=== PATIENT | female | born 2000 | race Hispanic/Latino ===

== ENCOUNTER 2025-05-26 18:33 | Emergency (ER) | payer BC ==
[~2025-05-26] VITALS: Ht 167.6 cm; Wt 61.7 kg
[2025-05-26 19:01] LABS: IMMATURE GRANULOCYTE ABSOLUTE 0.00 K/uL (0-1); NUCLEATED RED BLOOD CELLS 0.0 % (0.0-0.19); PLATELET COUNT (AUTO) 284 K/uL (130-400); RED BLOOD CELL COUNT(AUTO) 4.40 MIL/uL (4.00-5.50); RED CELL DISTRIBUTION WIDTH 12.3 % (11.0-15.5); WHITE BLOOD COUNT (AUTO) 6.4 K/uL (4.8-10.8)
[2025-05-26 19:09] LABS: CREATININE 0.7 mg/dL (0.5-1.0); GLOMERULAR FILTR. RATE CALC 125.0 mL/min (>90); GLUCOSE,RANDOM 83.0 mg/dL (70-105); SODIUM SERUM 140.0 mmol/L (136-145); UREA NITROGEN, BLOOD 12.0 mg/dL (7-18)
[2025-05-26] MEDS: DICYCLOMINE HCL 10 MG/5 ML ML PO ONE (19:16)
[2025-05-26] MEDS: LIDOCAINE HCL 2% VISCOUS 15 ML UDCUP PO ONE (19:16)
[2025-05-26] MEDS: MAG/ALUM/SIMETH 30 ML UDCUP PO ONE (19:16)
[2025-05-26 19:19] LABS: ASPARTATE AMINOTRANSFERASE 13.0 U/L (10-37); HCG,QUANTITATIVE 0.0 mIU/mL (0-5); TOTAL PROTEIN, SERUM 8.1 g/dL (6.0-8.3)
--- NOTE | 2025-05-26 20:07 | ERN ---
ED Note History of Present Illness Stated Complaint: ABD PAIN, CONSTIPATION Chief Complaint: Abdominal Pain Time Seen by MD: 18:37 Time Seen by Midlevel: 18:40 Dictation: 24-year-old female coming in complaining of epigastric pain denies having any fever, nausea, vomiting. Patient states she was seen at a urgent care couple of days ago where she had a CT scan they told everything was normal. Denies having any nausea, vomiting or diarrhea. Allergies: Coded Allergies: No Known Drug Allergies (Unverified Allergy, Unknown, 05/26/25) Past Medical History Past Medical History: No Pertinent History, Depression Surgical History: None : 0 Para: 0 Aborts: 0 Review of System Dictation Constitutional: Negative for fever,chills, and weight loss Eyes: Negative for injury, pain,redness, and discharge ENT: Negative for injury,pain or swelling Cardiovascular: Negative for chest pain, palpitations, and edema Respiratory: Negative for shortness of breath, cough, and wheezing, Abdomen/GI: Complaining of epigastric pain Back: Negative for injury and pain : Negative for injury, bleeding and discharge MS/Extremity: Negative for injury and deformity Skin: Negative for rash, and discoloration Neuro: Negative for headache, weakness, numbness, tingling, and seizure Psych: Negative for suicide ideation, homicidal ideation, and hallucinations Review of Systems: was completed Initial Vital Sign VS Vital Signs Date Time Temp Pulse Resp B/P (MAP) Pulse Ox O2 Delivery O2 Flow Rate FiO2 05/26/25 18:35 97.7 84 14 129/93 97 Room Air 0 05/26/25 18:52 21 Physical Exam Dictation General: awake, alert, NAD Head/Face: Normocephalic, atraumatic Eyes: PERRL, EOMI, vision at baseline ENT: oral cavity clear, TMs clear, no signs of infection Neck: Trachea midline, supple, no nuchal rigidity Cardiovascular: RRR, normal S1/S2, No MRGs, no JVD Respiratory: CTAB, no respiratory distress, No rales or wheezes Abdomen: Soft, non-tender, non-distended, normal bowel sounds, no guarding or rebound. Skin: Warm, dry, normal turgor, no rash MS/Extremity: Pulses equal, no cyanosis, neurovascular intact, FROM Neuro: COAx4, GCS 15, strength 5/5, CN 2-12 intact, normal cerebellar exam, normal gait, Psych: Normal behavior, mood, and affect normal Results (Laboratory/Radiology) Laboratory/Radiology Laboratory Tests Test 05/26/25 18:50 White Blood Count 6.4 K/uL (4.8-10.8) Red Blood Count 4.40 MIL/uL (4.00-5.50) Hemoglobin 12.8 g/dL (12.0-16.0) Hematocrit 37.0 % (36-48) Mean Corpuscular Volume 84.1 fL (79-99) Mean Corpuscular Hemoglobin 29.1 pg (27.0-33.0) Mean Corpuscular Hemoglobin Concent 34.6 g/dL (32.0-36.0) Red Cell Distribution Width 12.3 % (11.0-15.5) Platelet Count 284 K/uL (130-400) Mean Platelet Volume 9.9 fL (7.5-10.5) Immature Granulocyte % (Auto) 0.0 % (0-1) Neutrophils (%) (Auto) 56.9 % (40.0-77.0) Lymphocytes (%) (Auto) 35.7 % (21.0-51.0) Monocytes (%) (Auto) 6.8 % (3.0-13.0) Eosinophils (%) (Auto) 0.3 % (0.0-8.0) Basophils (%) (Auto) 0.3 % (0.0-5.0) Neutrophils # (Auto) 3.6 K/uL (1.8-7.7) Lymphocytes # (Auto) 2.3 K/uL (1.0-4.8) Monocytes # (Auto) 0.4 K/uL (0.1-1.0) Eosinophils # (Auto) 0.02 K/uL (0.00-0.70) Basophils # (Auto) 0.02 K/uL (0.00-0.20) Absolute Immature Granulocyte (auto 0.00 K/uL (0-1) Nucleated Red Blood Cells 0.0 % (0.0-0.19) Sodium Level 140 mmol/L (136-145) Potassium Level 3.2 mmol/L (3.5-5.1) L Chloride Level 102 mmol/L (101-111) Carbon Dioxide Level 23 mmol/L (21-32) Blood Urea Nitrogen 12 mg/dL (7-18) Creatinine 0.7 mg/dL (0.5-1.0) Glomerular Filtration Rate Calc 125 mL/min (>90) Random Glucose 83 mg/dL (70-105) Total Calcium 9.9 mg/dL (8.5-10.1) Total Bilirubin 0.6 mg/dL (0.2-1.0) Direct Bilirubin 0.2 mg/dL (0.0-0.3) Aspartate Amino Transf (AST/SGOT) 13 U/L (10-37) Alanine Aminotransferase (ALT/SGPT) 20 U/L (12-78) Alkaline Phosphatase 80 U/L (50-136) Total Protein 8.1 g/dL (6.0-8.3) Albumin 4.8 g/dL (3.5-5.0) Lipase 48 U/L (16-77) Human Chorionic Gonadotropin, Quant 0 mIU/mL (0-5) Labs Reviewed?: Yes ED Course ED Course Orders Procedure Category Date Status Time Cbc With Differential LAB 05/26/25 Complete 18:42 Basic Metabolic Panel LAB 05/26/25 Complete 18:42 Hepatic Function Panel LAB 05/26/25 Complete 18:42 Lipase LAB 05/26/25 Complete 18:42 Hcg,Quantitative LAB 05/26/25 Complete 18:42 Lidocaine Hcl 2% PHA 05/26/25 Complete Viscous (Lidocaine Hcl 19:00 Mag/Alum/Simeth 30ml PHA 05/26/25 Complete (Maalox Plus 30ml) 19:00 Dicyclomine Hcl PHA 05/26/25 Complete (Bentyl 10mg/5ml 19:00 Potassium Bicarb/Cit PHA 05/26/25 Complete Ac 25meq (K-Lyte Ta 19:50 Current Medications Medications (Trade) Dose Ordered Sig/Tobi Route PRN Reason Start Time Stop Time Status Last Admin Dose Admin Al Hydroxide/Mg Hydroxide (MAALox PLUS 30ML) 30 ml ONCE ONCE PO 05/26/25 19:00 05/26/25 19:01 DC 05/26/25 19:16 Dicyclomine HCl (Bentyl 10mg/5ml Syrup) 10 mg ONCE ONCE PO 05/26/25 19:00 05/26/25 19:01 DC 05/26/25 19:16 Lidocaine HCl (Lidocaine HCl 2% Viscous) 10 ml ONCE ONCE PO 05/26/25 19:00 05/26/25 19:01 DC 05/26/25 19:16 Potassium Bicarbonate (K-Lyte Tablet Eff 25 Meq Tablet.eff) 25 meq ONCE STAT PO 05/26/25 19:50 05/26/25 19:55 DC 05/26/25 20:03 Vital Signs Date Time Temp Pulse Resp B/P (MAP) Pulse Ox O2 Delivery O2 Flow Rate FiO2 05/26/25 18:52 97.7 84 14 129/63 97 Room Air* 0 21 05/26/25 18:35 97.7 84 14 129/93 97 Room Air 0 Medical Decision Making MDM MDM: 24-year-old female coming in complaining of epigastric pain denies having any fever, nausea, vomiting. Patient states she was seen at a urgent care couple of days ago where she had a CT scan they told everything was normal. Denies having any nausea, vomiting or diarrhea. All blood work is unremarkable. No transaminitis, T bili and lipase within normal range. Patient states feels better after medications. Discussed with the patient next step would be to follow up with the medicaid billing clerk to see if she needs further evaluation for other etiologies like H pylori, GERD, PUD. Patient educated on signs and symptoms when to return back to the ER. Verbalized understanding, answered all questions. Differential diagnosis: Pancreatitis, GERD, gastritis, PUD Rationale: Tests considered and ordered secondary to shared decision making include: Previous outside records reviewed: Old ER visits. Risk of complication and/or morbidity or mortality of patient management: None Medications-Per medication reconciliation Need for hospitalization: Patient does not meet criteria for hospitalization. Need for emergency major/minor surgery: No There are no social concerns with this patient. Prescription drug management Prescriptions will include symptomatic care Patient's prior external medical records from other ER visits were reviewed by me as indicated. Prior testing and results from previous visits were reviewed. Prior tests were taken into account with medical decision making and resource utilization, independent historian/historians were used to obtain complete medical history. I independently interpreted the test that were performed, results were reviewed by me and considered findings on radiology if ordered. Medical management and examination interpretation discussions were had by me with other qualified healthcare professionals as indicated for the patient's care. DX & DISP Disposition: Discharge Departure Impression: Primary Impression: Gastritis Condition: Stable Scripts Dicyclomine HCl (Bentyl) 20 Mg Tab 1 TAB PO BID for irritable bowel symptoms for 30 Days, #60 TAB 0 Refills Prov: CONCEPCION REYES NP 05/26/25 Additional Instructions: Yes you can take Tums for acid and your stomach along with the medications that I provided as needed. Follow up with PCP and with medicaid billing clerk. Referrals: SELF,REFERRAL (PCP) SELIN PALMA MD Time of Disposition: 20:10 I have reviewed the case, and I agree with, Diagnosis and Plan CONCEPCION REYES NP May 26, 2025 20:07
[2025-05-26] MEDS ORDERED: DICY20TA2 PO (20:28)
[2025-05-26 20:29] VITALS: BP 122/68; PULSE 88; RESP 14; TEMP 97.7; O2SAT 97
== END 2025-05-26 20:30 | disposition home or self-care (01) ==
LOC: EDH 18:33
DX: K29.70 Gastritis, unspecified, without bleeding (principal); R10.2 Pelvic and perineal pain
CPT/HCPCS: 36415; 80048; 80076; 83690; 84702; 85025; 99283